=== PATIENT | female | born 1960 | race Native Hawaiian/Other Pacific Islander ===

== ENCOUNTER 2020-01-31 08:01 | Outpatient (CLI) | payer OTHER | END 2020-01-31 20:08 | disposition home or self-care (01) | LOC: NM 08:01 | DX: L03.116 Cellulitis of left lower limb (principal); S96.092 Other injury of muscle and tendon of long flexor muscle of toe at ankle and foot level, left foot | CPT/HCPCS: A9561 ==